=== PATIENT | male | born 1975 | race Caucasian/White ===

== ENCOUNTER 2017-03-29 11:54 | Emergency (ER) | payer OTHER ==
[2017-03-29 12:10] VITALS: BP 118/72; PULSE 82; RESP 18; TEMP 98.4
--- NOTE | 2017-03-29 13:45 | XR ---
EXAMINATION TYPE: XR shoulder complete RT , 3 VIEWS DATE OF EXAM ORDERED: 03/29/2017 HISTORY: Pain. COMPARISON: None. FINDINGS: No fracture, dislocation or other acute osseous lesion is seen. IMPRESSION: NORMAL RIGHT SHOULDER.
--- NOTE | 2017-03-29 14:17 | ED ---
General Adult HPI - General Chief complaint: Extremity Injury, Upper Stated complaint: RT SHOULDER PAIN Time Seen by Provider: 03/29/17 12:43 Source: patient, RN notes reviewed, old records reviewed Mode of arrival: ambulatory Limitations: no limitations - History of Present Illness Initial comments: Chief complaint history of present illness a 41-year-old male reports that he was using a tire iron try to remove tire today when he felt a sharp pop in his right shoulder and has pain now over the deltoid region. - Related Data Home Medications Medication Instructions Recorded Confirmed Ibuprofen 800 mg PO Q6H 03/29/17 03/29/17 Loratadine 10 mg PO DAILY 03/29/17 03/29/17 Previous Rx's Medication Instructions Recorded Ibuprofen [Motrin] 600 mg PO Q6HR PRN #20 tab 03/29/17 Allergies Allergy/AdvReac Type Severity Reaction Status Date / Time No Known Allergies Allergy Verified 03/29/17 14:12 Review of Systems ROS Statement: Those systems with pertinent positive or pertinent negative responses have been documented in the HPI. Review of systems mild discomfort to the right side of his neck as well as the right shoulder more deltoid region. The patient reports he feels better in a sling. He is able to put his right hand on his left shoulder. No evidence of dislocation. Patient denies chest pain shortness breath GI/ problems no other deficits. All systems were reviewed. Past medical problems significant for seasonal ALLERGIES and X-ray suggests sarcoidosis or nodular pattern from granulomatous disease. Patient surgeries: Laminectomy L5-S1 area. Family history diabetes but no cancers. The patient states she does not smoke and alcohol socially. No exposure harmful chemicals. ROS Other: All systems not noted in ROS Statement are negative. Past Medical History Additional Past Medical History / Comment(s): seasonal allergies History of Any Multi-Drug Resistant Organisms: None Reported Additional Past Surgical History / Comment(s): laminectomy 203 l5s1, hemmorhoid Past Psychological History: No Psychological Hx Reported Smoking Status: Never smoker Past Alcohol Use History: Occasional Past Drug Use History: Marijuana General Exam - General Exam Comments Initial Comments: General: The patient is awake and alert, in no distress, and does not appear acutely ill. Patient has a sling which is decreasing discomfort to his right shoulder. Vital signs temp 98.4 pulse 82 respiratory rate 18 pulse ox on percent room air blood pressure 118/72 Eye: Pupils are equal, round and reactive to light, extra-ocular movements are intact ; there is normal conjunctiva bilaterally. No signs of icterus. Ears, nose, mouth and throat: There are moist mucous membranes and no oral lesions. Neck: The neck is supple, there is no tenderness minimal discomfort to the right side of his neck from straining so hard with a tire iron and the right shoulder. Cardiovascular: There is a regular rate and rhythm. No murmur, rub or gallop is appreciated. Respiratory: Lungs are clear to auscultation, respirations are non-labored, breath sounds are equal. No wheezes, stridor, rales, or rhonchi. Gastrointestinal: No abdominal pain no nausea no vomiting. Back: Chronic low back pain. History of previous ruptured disc. Musculoskeletal: Right shoulder pain especially along the deltoid muscle area. Minimal to no swelling. Neurovascular status to hands intact pain is limited to the shoulder area. Able to open close his hand flex his wrist pronate the elbow. Neurological: No neuro deficits Skin: Skin is warm and dry and no rashes or lesions are noted. Limitations: no limitations Course Vital Signs 03/29/17 12:06 Temperature 98.4 F Pulse Rate 82 Respiratory 18 Rate Blood Pressure 118/72 O2 Sat by Pulse 100 Oximetry Medical Decision Making - Medical Decision Making X-ray of the right shoulder was done reviewed radiologist. His findings are no fracture, dislocation or other acute osseous lesion is seen. Impression normal right shoulder. As read by Dr. Montalvo. It is noted that there are some nodules within the x-ray of the right shoulder. This compared to an x-ray done 5 years ago. And they are similar. Cussed these findings with the patient he said yes he is known about this for 5 years. But only in the last several months has he decided to follow-up with another chest x-ray done at the other hospital in town showed nodularity as well. He reports 4 months ago he provided sputum samples and he has had endoscopy with biopsy of the lung tissue. He is receiving the results of the next several days. Disposition Clinical Impression: Right shoulder strain Disposition: HOME SELF-CARE Condition: Stable Additional Instructions: Wear sling for comfort. Ice to shoulder as needed. Follow-up family doctor and orthopod as needed. Dr. Vásquez on-call today who don't have an orthopod. Follow-up with your lung doctor for final results concerning the pulmonary nodularities. Prescriptions: Ibuprofen [Motrin] 600 mg PO Q6HR PRN #20 tab PRN Reason: Pain Referrals: Janette Barber MD [Primary Care Provider] - 1-2 days Time of Disposition: 14:25
== END 2017-03-29 14:42 | disposition home or self-care (01) ==
LOC: EC 11:54
DX: S46.911A Strain of unspecified muscle, fascia and tendon at shoulder and upper arm level, right arm, initial encounter (principal); Z79.1 Long term (current) use of non-steroidal anti-inflammatories (NSAID); Z79.899 Other long term (current) drug therapy; X50.1XXA Overexertion from prolonged static or awkward postures, initial encounter; Y93.89 Activity, other specified
CPT/HCPCS: 99284

== ENCOUNTER 2018-05-05 11:36 | Day surgery (SDC) | payer OTHER ==
[2018-05-01 12:16] VITALS: BMI 23.3
[~2018-05-05 11:36] MED LIST: LACTATED RINGERS 1,000 ML IV SCH
[2018-05-05 12:29] VITALS: TEMP 97.8
[2018-05-05] MEDS ORDERED: LIDOCAINE 1% 20 ML VIAL (10MG/ML) FOR IV START INTRADERMA ONE (12:29)
[2018-05-05] MEDS ORDERED: PROPOFOL 10 MG/ML 20 ML VIAL IV ONE (13:18)
[2018-05-05 13:53] VITALS: RESP 16
--- NOTE | 2018-05-05 13:58 | P.PCN ---
Date of Procedure: 05/05/18 Procedure(s) Performed: procedure: 1. Esophagogastroduodenoscopy and biopsy. 2. Colonoscopy and biopsy. Preoperative diagnosis: Atypical chest pain and change in bowel habits. Postoperative diagnosis: 1. Small sliding hiatal hernia with no obvious esophagitis or complicated reflux disease. 2. Mild antral gastritis. 3. Normal colon and terminal ileum. 4. Biopsies obtained from the duodenum, antrum , esophagus, terminal ileum and right colon. Preparation: HalfLytely prep. Sedation: Was provided by anesthesia. Brief clinical history: The patient is a 42-year-old male who is scheduled for this evaluation because of atypical chest pains and loose stools of 2 months duration. The patient has history of sarcoidosis. Procedure: With the patient on his left lateral decubitus position and after informed consent and adequate sedation, I passed the Olympus-GIF 160 video upper endoscope through the cricopharyngeus down the esophagus. GE junction was around 42 cm from the incisors and there was a small sliding hiatal hernia. The esophagus did not show any obvious erosions, ulcers, strictures or Evans 's esophagus. The endoscope was then passed into the stomach which was insufflated with air and inspected in detail including the retroflex view in the cardia. There was some mottling and erythema in the antrum but no ulcers or erosions. Pyloric channel, duodenal bulb, post bulbar area and descending duodenum where essentially within normal limits. Because of his symptoms, I obtained biopsies from the duodenum, antrum and esophagus then the endoscope was withdrawn and I proceeded with the colonoscopy. Perianal area did not show any fissures or fistulas. There were no masses felt on digital rectal examination. The Olympus CFQ 160L video colonoscope was then inserted in the rectum in the usual fashion and advanced to the cecum. I intubated the ileocecal valve and examined the terminal ileum. Terminal ileum and colon appeared healthy with no edema, erythema, friability, ulceration, exudation or spontaneous bleeding. No diverticular disease or any polyps or tumors were seen. I retroflexed the endoscope in the rectum before the endoscope was withdrawn. I obtained biopsies from the terminal ileum and right colon as well. The patient tolerated the procedure well. Plan: The patient was reassured. Will await biopsy results and make further plans based on his course and biopsy results.I will keep you updated on his progress.
[2018-05-05 14:32] VITALS: BP 126/67; PULSE 84
== END 2018-05-05 14:42 | disposition home or self-care (01) ==
LOC: ORWHC2ENDO 11:36
DX: K29.50 Unspecified chronic gastritis without bleeding (principal); K29.80 Duodenitis without bleeding; K44.9 Diaphragmatic hernia without obstruction or gangrene; K52.9 Noninfective gastroenteritis and colitis, unspecified; K20.9 Esophagitis, unspecified; D86.9 Sarcoidosis, unspecified; G89.29 Other chronic pain; M54.9 Dorsalgia, unspecified; K62.89 Other specified diseases of anus and rectum; Z79.1 Long term (current) use of non-steroidal anti-inflammatories (NSAID); Z79.899 Other long term (current) drug therapy
CPT/HCPCS: 88305; 45380; 43239; J2704

== ENCOUNTER 2021-05-03 17:15 | Emergency (ER) | payer OTHER ==
[2021-05-03] MEDS ORDERED: ONDANSETRON 4 MG/2 ML VIAL IVP STA (17:56)
[2021-05-03] MEDS ORDERED: SODIUM CHLORIDE 0.9% 1,000 ML IV STA (17:56)
[2021-05-03] MEDS ORDERED: MORPHINE SULFATE 4 MG/ML SYRINGE IV STA (17:56)
[2021-05-03 18:02] VITALS: RESP 18; TEMP 98
[2021-05-03 18:07] LABS: Glucose,Whole Blood 125 mg/dL (75-99)
[2021-05-03 18:16] LABS: Basophils % (A) 1 %; Eosinophils # (A) 0.1 k/uL (0-0.7); Eosinophils % (A) 2 %; HCT 44.4 % (39.0-53.0); HGB 16.3 gm/dL (13.0-17.5); Hyperchromasia Moderate; Lymphocytes # (A) 1.5 k/uL (1.0-4.8); Lymphocytes % (A) 25 %; MCH 31.3 pg (25.0-35.0); MCHC 36.7 g/dL (31.0-37.0); MCV 85.5 fL (80.0-100.0); Mean Platelet Volume 7.2; Monocytes # (A) 0.4 k/uL (0-1.0); Monocytes % (A) 7 %; Neutrophils # (A) 3.9 k/uL (1.3-7.7); Neutrophils % (A) 63 %; Platelet Count 403 k/uL (150-450); RDW 12.8 % (11.5-15.5); WBC 6.2 k/uL (3.8-10.6)
[2021-05-03 18:19] LABS: ALT 25 U/L (4-49); AST 32 U/L (17-59); African American GFR (CKD) >90 (>60 ml/min/1.73 sqM); Albumin 4.7 g/dL (3.5-5.0); Alkaline Phosphatase 78 U/L (38-126); Amylase 52 U/L (30-110); Anion Gap 13 mmol/L; Blood Urea Nitrogen 19 mg/dL (9-20); Calcium 10.3 mg/dL (8.4-10.2); Carbon Dioxide 18 mmol/L (22-30); Chloride 107 mmol/L (98-107); Glucose 122 mg/dL (74-99); Lipase 57 U/L (23-300); Non-African American GFR(CKD) >90 (>60 ml/min/1.73 sqM); Potassium 4.2 mmol/L (3.5-5.1); Sodium 138 mmol/L (137-145); Total Protein 7.8 g/dL (6.3-8.2)
[2021-05-03 18:20] LABS: INR 1.1 (<1.2); Partial Thromboplastin Time 24.3 sec (22.0-30.0); Prothrombin Time 11.2 sec (9.0-12.0)
[2021-05-03] MEDS ORDERED: LORazepam 2 MG/ML INJ IV STA (18:20)
--- NOTE | 2021-05-03 19:29 | CT ---
EXAMINATION TYPE: CT abdomen pelvis wo con DATE OF EXAM: 05/03/2021 COMPARISON: KUB 05/03/2021, chest x-ray 12/02/2011 HISTORY: Left sided abdominal pain CT DLP: 516.1 mGycm Automated exposure control for dose reduction was used. TECHNIQUE: Helical acquisition of images from the lung bases through the pelvis. FINDINGS: Lack of intravenous contrast could compromise sensitivity. LUNG BASES: Multiple varying sizes pulmonary nodules are present at the lung bases, there is abnormal pleural thickening present bilaterally, no pleural or pericardial effusion. AORTA: No significant abnormality is appreciated. LIVER/GB: No significant abnormality is appreciated. PANCREAS: No significant abnormality is seen. SPLEEN: No significant abnormality is seen. ADRENALS: No significant abnormality is seen. KIDNEYS: Punctate nonobstructive calculi are present within the bilateral kidneys. There is perinephr ic stranding in the left, mild hydronephrosis noted on the left, left-sided hydroureter. At the level the distal left ureter there is a punctate calcification present measuring approximately 3 to 4 mm.. REPRODUCTIVE ORGANS: Prostate is enlarged and shows associated calcification URINARY BLADDER: Urinary bladder shows a thickened wall possibly due to chronic outlet obstruction BOWEL: No significant abnormality is seen. FREE AIR: No Free Air is visible. ASCITES: None visible. PELVIC ADENOPATHY: None visualized. RETROPERITONEAL ADENOPATHY: No Retroperitoneal Adenopathy visible. OSSEOUS STRUCTURES: Degenerative disc changes, facet arthropathy noted especially in the lower lumba r spine. IMPRESSION: MULTIPLE PULMONARY NODULES, CONSIDER GRANULOMATOUS DISEASE, PATIENT WITH HISTORY OF SARCOID. BILATERA L NEPHROLITHIASIS , OBSTRUCTIVE LEFT URETEROLITHIASIS NONCONTRAST EXAM.
--- NOTE | 2021-05-03 19:34 | XR ---
KUB HISTORY: Abdominal pain Frontal KUB and [address] scan 05/03/2021 The distal left ureteral calculus is noted on plain film measuring approximately 3 mm. No evident bow el obstruction or pneumoperitoneum. Bone mineralization is normal. Lung bases are remarkable for bila teral pulmonary nodules. IMPRESSION: Distal left ureteral calculus. Findings consistent with patient's history of sarcoid.
--- NOTE | 2021-05-03 19:36 | XR ---
EXAMINATION TYPE: XR chest 2V DATE OF EXAM: 05/03/2021 COMPARISON: Chest x-ray 12/02/2011 HISTORY: Abdominal pain, shortness of breath TECHNIQUE: Frontal and lateral views of the chest are obtained. FINDINGS: Bilateral pulmonary nodules are present. There is been progression in apical pleural thick ening. Cardiac mediastinal silhouette shows some retraction of the ike superiorly. There are overlyi ng leads. No evident pneumothorax or pleural effusion. IMPRESSION: Findings likely relate to patient's history of sarcoid.
[2021-05-03] MEDS ORDERED: SODIUM CHLORIDE 0.9% 500 ML 500 ML IV ONE (19:55)
[2021-05-03] MEDS ORDERED: KETOROLAC 15 MG/ML 1 ML VIAL IVP STA (19:55)
[2021-05-03 21:13] LABS: Appearance,Urine Clear (Clear); Bacteria,Urine Rare /hpf; Bilirubin,Urine Negative (Negative); Blood,Urine Moderate (Negative); Color,Urine Yellow; Glucose,Urine (UA) Negative (Negative); Ketones,Urine 1+ (Negative); Leukocyte Esterase,Urine Negative (Negative); Mucus,Urine Rare /hpf; Nitrite,Urine Negative (Negative); PH, Urine 7.5 (5.0-8.0); Protein,Urine Negative (Negative); RBC,Urine 18 /hpf (0-5); Specific Gravity,Urine 1.013 (1.001-1.035); Urobilinogen,Urine <2.0 mg/dL (<2.0); WBC,Urine 1 /hpf (0-5)
--- NOTE | 2021-05-03 21:15 | ED ---
General Adult HPI - General Chief complaint: Abdominal Pain Stated complaint: left side abd pain/SOB Time Seen by Provider: 05/03/21 17:52 Source: patient, family, RN notes reviewed, old records reviewed Mode of arrival: wheelchair Limitations: no limitations - History of Present Illness Initial comments: 45-year-old male presenting with sudden onset left flank pain and left-sided abdominal pain. Patient had been in triage, he became vasovagal and nearly passed out. This was secondary to significant pain. He had nausea and vomiting. No previous history of renal colic. - Related Data Home Medications Medication Instructions Recorded Confirmed Naproxen [Naprosyn] 500 mg PO Q12HR PRN 05/03/21 05/03/21 Previous Rx's Medication Instructions Recorded HYDROcodone/APAP 5-325MG [[place] 1 tab PO Q6HR PRN #12 tab 05/03/21 5-325] Ibuprofen [Motrin] 600 mg PO Q8HR PRN #24 tab 05/03/21 Ondansetron Odt [Zofran Odt] 4 mg PO Q8HR PRN #10 tab 05/03/21 Tamsulosin [Flomax] 0.4 mg PO DAILY #7 cap 05/03/21 Allergies Allergy/AdvReac Type Severity Reaction Status Date / Time No Known Allergies Allergy Verified 05/03/21 18:19 Review of Systems ROS Statement: Those systems with pertinent positive or pertinent negative responses have been documented in the HPI. ROS Other: All systems not noted in ROS Statement are negative. Past Medical History Past Medical History: Musculoskeletal Disorder Additional Past Medical History / Comment(s): SARCOIDOSIS LUNGS, SEASONAL ALLERGIES, BACK PAIN WITH SCIATICA (RE-RUPTURED DISC L-5 & S-1), STATES FREQUENT DIARRHEA AND NAUSEA FOR 2 MONTHS. History of Any Multi-Drug Resistant Organisms: None Reported Additional Past Surgical History / Comment(s): laminectomy, (l-5 & S-1) .,hemmorhoid Past Anesthesia/Blood Transfusion Reactions: No Reported Reaction Past Psychological History: Anxiety Smoking Status: Never smoker Past Alcohol Use History: Occasional Past Drug Use History: Marijuana - Past Family History Mother Family Medical History: No Reported History General Exam Limitations: no limitations General appearance: alert, in no apparent distress Head exam: Present: atraumatic, normocephalic Eye exam: Present: normal appearance, PERRL ENT exam: Present: normal exam Neck exam: Present: normal inspection. Absent: tenderness, meningismus Respiratory exam: Present: normal lung sounds bilaterally. Absent: respiratory distress, wheezes Cardiovascular Exam: Present: regular rate, normal rhythm GI/Abdominal exam: Present: soft, tenderness (left upper quadrant). Absent: distended Extremities exam: Present: normal inspection, normal capillary refill. Absent: pedal edema Back exam: Present: CVA tenderness (L) Neurological exam: Present: alert, oriented X3, CN II-XII intact. Absent: motor sensory deficit Psychiatric exam: Present: normal affect, normal mood Skin exam: Present: warm, dry, intact. Absent: cyanosis, diaphoretic Course Vital Signs 05/03/21 05/03/21 05/03/21 17:59 18:18 19:52 Temperature 98 F Pulse Rate 77 82 Respiratory 18 18 Rate Blood Pressure 126/101 135/96 130/83 O2 Sat by Pulse 100 95 Oximetry EKG Findings - EKG Comments: EKG Findings:: EKG: Normal sinus rhythm with sinus arrhythmia rate of 84, NJ interval 142 QRS duration 86 QTC 458, no ST segment elevation. Medical Decision Making - Medical Decision Making 45-year-old male who presented with sudden onset left flank pain suggestive of renal colic. He had a near syncopal episode which was laced leave vasovagal secondary to pain. He was not hypotensive or bradycardic. - Lab Data Result diagrams: 05/03/21 18:01 05/03/21 18:01 Lab Results 05/03/21 05/03/21 05/03/21 Range/Units 18:01 18:01 18:01 WBC 6.2 (3.8-10.6) k/uL RBC 5.20 (4.30-5.90) m/uL Hgb 16.3 (13.0-17.5) gm/dL Hct 44.4 (39.0-53.0) % MCV 85.5 (80.0-100.0) fL MCH 31.3 (25.0-35.0) pg MCHC 36.7 (31.0-37.0) g/dL RDW 12.8 (11.5-15.5) % Plt Count 403 (150-450) k/uL MPV 7.2 Neutrophils % 63 % Lymphocytes % 25 % Monocytes % 7 % Eosinophils % 2 % Basophils % 1 % Neutrophils # 3.9 (1.3-7.7) k/uL Lymphocytes # 1.5 (1.0-4.8) k/uL Monocytes # 0.4 (0-1.0) k/uL Eosinophils # 0.1 (0-0.7) k/uL Basophils # 0.0 (0-0.2) k/uL Hyperchromasia Moderate PT 11.2 (9.0-12.0) sec INR 1.1 (<1.2) APTT 24.3 (22.0-30.0) sec Sodium 138 (137-145) mmol/L Potassium 4.2 (3.5-5.1) mmol/L Chloride 107 (98-107) mmol/L Carbon Dioxide 18 L (22-30) mmol/L Anion Gap 13 mmol/L BUN 19 (9-20) mg/dL Creatinine 1.01 (0.66-1.25) mg/dL Est GFR (CKD-EPI)AfAm >90 (>60 ml/min/1.73 sqM) Est GFR (CKD-EPI)NonAf >90 (>60 ml/min/1.73 sqM) Glucose 122 H (74-99) mg/dL POC Glucose (mg/dL) (75-99) mg/dL POC Glu Web Consultant ID Lactic Ac Sepsis Rflx Plasma Lactic Acid Eddy (0.7-2.0) mmol/L Calcium 10.3 H (8.4-10.2) mg/dL Total Bilirubin 1.0 (0.2-1.3) mg/dL AST 32 (17-59) U/L ALT 25 (4-49) U/L Alkaline Phosphatase 78 (38-126) U/L Troponin I (0.000-0.034) ng/mL Total Protein 7.8 (6.3-8.2) g/dL Albumin 4.7 (3.5-5.0) g/dL Amylase 52 (30-110) U/L Lipase 57 (23-300) U/L 05/03/21 05/03/21 05/03/21 Range/Units 18:01 18:01 18:05 WBC (3.8-10.6) k/uL RBC (4.30-5.90) m/uL Hgb (13.0-17.5) gm/dL Hct (39.0-53.0) % MCV (80.0-100.0) fL MCH (25.0-35.0) pg MCHC (31.0-37.0) g/dL RDW (11.5-15.5) % Plt Count (150-450) k/uL MPV Neutrophils % % Lymphocytes % % Monocytes % % Eosinophils % % Basophils % % Neutrophils # (1.3-7.7) k/uL Lymphocytes # (1.0-4.8) k/uL Monocytes # (0-1.0) k/uL Eosinophils # (0-0.7) k/uL Basophils # (0-0.2) k/uL Hyperchromasia PT (9.0-12.0) sec INR (<1.2) APTT (22.0-30.0) sec Sodium (137-145) mmol/L Potassium (3.5-5.1) mmol/L Chloride (98-107) mmol/L Carbon Dioxide (22-30) mmol/L Anion Gap mmol/L BUN (9-20) mg/dL Creatinine (0.66-1.25) mg/dL Est GFR (CKD-EPI)AfAm (>60 ml/min/1.73 sqM) Est GFR (CKD-EPI)NonAf (>60 ml/min/1.73 sqM) Glucose (74-99) mg/dL POC Glucose (mg/dL) 125 H (75-99) mg/dL POC Glu Web Consultant ID Tosha Baldwin Lactic Ac Sepsis Rflx Plasma Lactic Acid Eddy 3.3 H* (0.7-2.0) mmol/L Calcium (8.4-10.2) mg/dL Total Bilirubin (0.2-1.3) mg/dL AST (17-59) U/L ALT (4-49) U/L Alkaline Phosphatase (38-126) U/L Troponin I <0.012 (0.000-0.034) ng/mL Total Protein (6.3-8.2) g/dL Albumin (3.5-5.0) g/dL Amylase (30-110) U/L Lipase (23-300) U/L 05/03/21 Range/Units 18:44 WBC (3.8-10.6) k/uL RBC (4.30-5.90) m/uL Hgb (13.0-17.5) gm/dL Hct (39.0-53.0) % MCV (80.0-100.0) fL MCH (25.0-35.0) pg MCHC (31.0-37.0) g/dL RDW (11.5-15.5) % Plt Count (150-450) k/uL MPV Neutrophils % % Lymphocytes % % Monocytes % % Eosinophils % % Basophils % % Neutrophils # (1.3-7.7) k/uL Lymphocytes # (1.0-4.8) k/uL Monocytes # (0-1.0) k/uL Eosinophils # (0-0.7) k/uL Basophils # (0-0.2) k/uL Hyperchromasia PT (9.0-12.0) sec INR (<1.2) APTT (22.0-30.0) sec Sodium (137-145) mmol/L Potassium (3.5-5.1) mmol/L Chloride (98-107) mmol/L Carbon Dioxide (22-30) mmol/L Anion Gap mmol/L BUN (9-20) mg/dL Creatinine (0.66-1.25) mg/dL Est GFR (CKD-EPI)AfAm (>60 ml/min/1.73 sqM) Est GFR (CKD-EPI)NonAf (>60 ml/min/1.73 sqM) Glucose (74-99) mg/dL POC Glucose (mg/dL) (75-99) mg/dL POC Glu Web Consultant ID Lactic Ac Sepsis Rflx Y Plasma Lactic Acid Eddy (0.7-2.0) mmol/L Calcium (8.4-10.2) mg/dL Total Bilirubin (0.2-1.3) mg/dL AST (17-59) U/L ALT (4-49) U/L Alkaline Phosphatase (38-126) U/L Troponin I (0.000-0.034) ng/mL Total Protein (6.3-8.2) g/dL Albumin (3.5-5.0) g/dL Amylase (30-110) U/L Lipase (23-300) U/L Disposition Clinical Impression: Calculus of kidney, Abdominal pain Disposition: HOME SELF-CARE Instructions (If sedation given, give patient instructions): Abdominal Pain (ED), Renal Colic (ED) Prescriptions: Tamsulosin [Flomax] 0.4 mg PO DAILY #7 cap Ibuprofen [Motrin] 600 mg PO Q8HR PRN #24 tab PRN Reason: Pain HYDROcodone/APAP 5-325MG [[place] 5-325] 1 tab PO Q6HR PRN #12 tab PRN Reason: Pain Ondansetron Odt [Zofran Odt] 4 mg PO Q8HR PRN #10 tab PRN Reason: Vomiting Is patient prescribed a controlled substance at d/c from ED?: No Referrals: Henry Croft MD [Primary Care Provider] - 1-2 days Maximiliano Hobson MD [STAFF PHYSICIAN] - 1-2 days Time of Disposition: 21:13
[2021-05-03 21:49] VITALS: BP 139/86; PULSE 79
== END 2021-05-03 21:55 | disposition home or self-care (01) ==
LOC: EC 17:15
DX: N20.0 Calculus of kidney (principal); F41.9 Anxiety disorder, unspecified; F12.90 Cannabis use, unspecified, uncomplicated
CPT/HCPCS: 99284; 96374; 96375 ×3; 96361 ×3; 36415; 80053; 82150; 83605; 83690; 84484; 85025; 85610; 85730; 81001; 71046; 74018; 74176; J2060; J2270; J2405; J1885; 93005

== ENCOUNTER → 2023-02-19 | Outpatient (CLI) | payer OTHER ==
[2023-02-20 01:17] LABS: Alternaria alternata IgE <0.10 kU/L; Aspergillus fumagatus IgE <0.10 kU/L; Birch IgE <0.10 kU/L; Cat Epith & Dander IgE <0.10 kU/L; Cladosporian herbarum IgE <0.10 kU/L; Dermato. farinae IgE <0.10 kU/L; Dog Dander IgE <0.10 kU/L; Elm IgE <0.10 kU/L; Oak IgE <0.10 kU/L; Ragweed,Common IgE <0.10 kU/L; Red Top (Bentgrass) IgE <0.10 kU/L
[2023-02-20 13:14] LABS: Bermuda Grass IgE <0.10 kU/L (<0.10); Meadow Fescue IgE <0.10 kU/L (<0.10); Meadow Fescue IgE Class CLASS 0; Meadow Grs (KY blue) IgE <0.10 kU/L (<0.10); Meadow Grs (KY blue) IgE Class CLASS 0; Pecan IgE <0.10 kU/L (<0.10); Pecan IgE Class CLASS 0; Penicillium notatum IgE Class CLASS 0; Timothy Grass IgE <0.10 kU/L (<0.10); Timothy Grass IgE Class CLASS 0
[2023-02-20 13:15] LABS: Beech IgE <0.10 kU/L (<0.10); Beech IgE Class CLASS 0; Cottonwood IgE <0.10 kU/L (<0.10); Goldenrod IgE <0.10 kU/L (<0.10); Goldenrod IgE Class CLASS 0; Lamb's Quarter IgE <0.10 kU/L (<0.10); Lamb's Quarter IgE Class CLASS 0; Sycamore(Mpl.Lf) IgE <0.10 kU/L (<0.10); Sycamore(Mpl.Lf) IgE Class CLASS 0; Willow Tree IgE <0.10 kU/L (<0.10); Willow Tree IgE Class CLASS 0
[2023-02-20 13:16] LABS: English Plantain IgE Class CLASS 0; Ragweed, Giant IgE <0.10 kU/L (<0.10); Ragweed, Giant IgE Class CLASS 0; Sheep Sorrel IgE <0.10 kU/L (<0.10); Sheep Sorrel IgE Class CLASS 0
== END | disposition home or self-care (01) ==
LOC: LABWHC1 15:48
PROVIDERS: ATTEND Internal Medicine
DX: J31.0 Chronic rhinitis (principal)
CPT/HCPCS: 36415; 82785; 86003